=== PATIENT | male | born 1980 | race American Indian/Alaskan Native ===

== ENCOUNTER 2020-10-21 13:34 | Emergency (ER) | payer MEDICAID ==
[2020-10-21 14:25] VITALS: BP 160/95
[2020-10-21] MEDS ORDERED: LIDOCAINE-MPF (1%) 10 MG/1 ML VIAL 5 ML INFILTRATI ONE (14:32)
--- NOTE | 2020-10-21 14:32 | Emergency Department Report ---
Abscess Boil HPI - HPI Chief Complaint: Skin/Abscess/Foreign Body Stated Complaint: ABCESS RT BUTTOCK Time Seen by Provider: 10/21/20 14:26 Duration: >1 Week Location: Other Severity: Mild History: Yes Pain, Yes Purulent Drainage, No Fever, No Numbness, No Foreign Body, No Previous History, No Insect Bite HPI: 40 yo comes to er with abscess on left buttox. Small, draining, not requiring I/D on exam. No fever or chills. Pt is diabetic but his blood gluc has not been higher than normal. no fever or chills. Pt states the boil popped on its own and has been draining. He is ambulatory and non ill appearing on exam. Home Medications: Previous Rx's Medication Instructions Recorded Last Taken Type cephALEXin [Keflex] 500 mg PO Q6HR #40 capsule 10/21/20 Unknown Rx Allergies/Adverse Reactions: Allergies Allergy/AdvReac Type Severity Reaction Status Date / Time No Known Allergies Allergy Unverified 10/21/20 14:21 ED Review of Systems ROS: Stated complaint: ABCESS RT BUTTOCK Other details as noted in HPI Comment: All other systems reviewed and negative ED Past Medical Hx - Past Medical History Previous Medical History?: Yes Hx Hypertension: Yes Hx Diabetes: Yes - Surgical History Past Surgical History?: No - Family History Family history: no significant - Social History Smoking Status: Never Smoker Substance Use Type: Alcohol - Medications Home Medications: Home Medications Medication Instructions Recorded Confirmed Last Taken Type cephALEXin [Keflex] 500 mg PO Q6HR #40 capsule 10/21/20 Unknown Rx ED Abscess Boil Physical Exam - Exam General: Vital signs noted. No distress. Alert and acting appropriately. Size: 2 cm Exam: Yes Tenderness, Yes Surrounding Cellulites/Erythema, Yes Normal Neurologic Exam, Yes Normal Circulation, No Fluctuance, No Lymphangitis, No Crepitation, No Heart Murmur I & D Note - I & D Note I & D Note: not needed- draining ED Course Vital Signs 10/21/20 10/21/20 14:21 14:24 Temperature 98.6 F Pulse Rate 94 H Respiratory 18 Rate Blood Pressure 160/95 [Left] O2 Sat by Pulse 100 Oximetry Critical care attestation.: If time is entered above; I have spent that time in minutes in the direct care of this critically ill patient, excluding procedure time. ED Medical Decision Making - Medical Decision Making simple abscess left buttox draining no I/D needed rocephin 1GM IM norco for pain educated on care of wound dc home with mother; pt verbalizes understanding of dc plan of care. Vital Signs (72 hours) 10/21/20 10/21/20 14:21 14:24 Temperature 98.6 F Pulse Rate 94 H Respiratory 18 Rate Blood Pressure 160/95 [Left] O2 Sat by Pulse 100 Oximetry - Differential Diagnosis simple abscess ED Disposition Clinical Impression: Abscess Disposition: DC-01 TO HOME OR SELFCARE Is pt being admited?: No Does the pt Need Aspirin: No Condition: Stable Instructions: Skin Abscess, [id number] Additional Instructions: med as ordered today soak in warm bath of epsom salts for 30 minutes 4 times per day then apply dry dressing to wound no peroxide on wound leave the wound drain motrin or tylenol for pain follow up with PCP on Sunday to be sure you are responding to meds Prescriptions: cephALEXin [Keflex] 500 mg PO Q6HR #40 capsule Referrals: CONNOR SALINAS MD [Staff Physician] - 3-5 Days Time of Disposition: 14:32
[2020-10-21] MEDS ORDERED: HYDROcodone/ACETAMINOPHEN 5-325 MG TAB PO ONE (14:36)
== END 2020-10-21 15:11 | disposition home or self-care (01) ==
LOC: ED 13:34
DX: L02.31 Cutaneous abscess of buttock (principal); I10 Essential (primary) hypertension; E11.9 Type 2 diabetes mellitus without complications; Z79.899 Other long term (current) drug therapy
CPT/HCPCS: 82962; 96372; 99283; J0696